=== PATIENT | male | born 1995 | race African-American/Black ===

== ENCOUNTER 2017-07-06 15:18 | Emergency (ER) | payer SELFPAY ==
[~2017-07-06] VITALS: Ht 188 cm; Wt 97.7 kg
[2017-07-06 17:26] VITALS: BP 136/78
[2017-07-06] MEDS ORDERED: ACETAMINOPHEN 325 MG TABLET PO ONE (17:30)
== END 2017-07-06 17:44 | disposition home or self-care (01) ==
LOC: EMS 15:20
DX: M54.2 Cervicalgia (principal); M54.9 Dorsalgia, unspecified; F17.210 Nicotine dependence, cigarettes, uncomplicated; V43.62XA Car passenger injured in collision with other type car in traffic accident, initial encounter; Y93.89 Activity, other specified; Y92.89 Other specified places as the place of occurrence of the external cause; Y99.8 Other external cause status
CPT/HCPCS: 99282